=== PATIENT | male | born 1995 | race African-American/Black ===

== ENCOUNTER 2018-11-15 18:43 | Emergency (ER) | payer SELFPAY ==
[~2018-11-15] VITALS: Wt 83.8 kg
[2018-11-15 18:45] VITALS: BP 143/95; PULSE 105; RESP 18
[2018-11-15] MEDS ORDERED: LIDOCAINE 1% (MDV) 20 ML INJ SC ONE (19:00)
[2018-11-15] MEDS ORDERED: CEPH-443 PO (19:18)
[2018-11-15] MEDS ORDERED: BACI28.34 TOP (19:18)
--- NOTE | 2018-11-15 19:33 | ERD ---
ER Documentation Chief Complaint Chief Complaint LAC TO CHIN S/P SLIP AND FALL HPI This patient is a 23-year-old male with no significant past medical history presenting with complaints of skin avulsion to his chin which occurred approximately 15 hours prior to arrival. He reports associated pain which he rates 3/10 in severity. Pain is constant. He states he was running when he slipped and fell forward hitting his chin against a metal plate on the ground. He denies any loss of consciousness, vomiting, confusion, or other symptoms or injuries at this time. He states his tetanus shot is up-to-date. ROS All systems reviewed and are negative except as per history of present illness. Medications Home Meds Active Scripts Bacitracin* (Bacitracin Zinc Oint*) 28.35 Gm Oint, 1 APPLIC TOP BID, #1 TUB APPLI TO Prov:KARY COOK PA-C 11/15/18 Cephalexin* (Keflex*) 500 Mg Capsule, 500 MG PO TID for 5 Days, CAP Prov:KARY COOK PA-C 11/15/18 Allergies Allergies: Coded Allergies: No Known Allergy (Unverified , 11/15/18) PMhx/Soc Medical and Surgical Hx: pt denies Medical Hx, pt denies Surgical Hx History of Surgery: No Anesthesia Reaction: No Hx Neurological Disorder: No Hx Respiratory Disorders: No Hx Cardiac Disorders: No Hx Psychiatric Problems: No Hx Miscellaneous Medical Probl: No Hx Alcohol Use: Yes Hx Substance Use: No Hx Tobacco Use: Yes (2 sticks/day) Smoking Status: Light tobacco smoker FmHx Family History: No diabetes Physical Exam Vitals Vital Signs Date Temp Pulse Resp B/P (MAP) Pulse Ox O2 O2 Flow FiO2 Time Delivery Rate 11/15/18 97.8 105 18 143/95 99 18:45 (111) Physical Exam Const: No acute distress Head: Atraumatic Eyes: Normal Conjunctiva ENT: Normal External Ears, Nose and Mouth. Neck: Full range of motion. No meningismus. Resp: Clear to auscultation bilaterally Cardio: Regular rate and rhythm, no murmurs Skin: There is a skin avulsion noted to the chin. No obvious foreign body. No active bleeding. Ext: No cyanosis, or edema Neur: Awake and alert Psych: Normal Mood and Affect Results 24 hrs Current Medications Medications Dose Sig/Yesenia Start Time Status Last (Trade) Ordered Route PRN Stop Time Admin Dose Reason Admin Lidocaine 20 ml ONCE ONCE 11/15/18 DC (Xylocaine SC 19:00 11/15/18 1% (Mdv) 20 19:01 ml) Procedures/MDM Patient is a 23-year-old male presenting with a skin avulsion of the chin. There is no indication for wound closure at this time due to the wound being more than 12 hours old. The wound was thoroughly irrigated and dressing was applied. Patient is stable and appropriate for discharge and further treatment/follow-up as an outpatient. He will be given prescription for Keflex and bacitracin. The patient agreed with the diagnosis, plan, need for follow- up, return precautions. Questions and concerns were addressed prior to discharge. Patient's blood pressure was elevated (>120/80) but appears stable without evidence of hypertension emergency or urgency. The patient is to follow-up and pursue outpatient monitoring and therapy with their primary care physician within 1 week and return immediately if they have any new, worsening, or concerning symptoms. Disclaimer: Inadvertent spelling and grammatical errors are likely due to EHR/dictation software use and do not reflect on the overall quality of patient care. Also, please note that the electronic time recorded on this note does not necessarily reflect the actual time of the patient encounter. Departure Diagnosis: Primary Impression: Skin avulsion Condition: Fair Patient Instructions: Skin Avulsion Referrals: [facility] YOU HAVE RECEIVED A MEDICAL SCREENING EXAM AND THE RESULTS INDICATE THAT YOU DO NOT HAVE A CONDITION THAT REQUIRES URGENT TREATMENT IN THE EMERGENCY DEPARTMENT. FURTHER EVALUATION AND TREATMENT OF YOUR CONDITION CAN WAIT UNTIL YOU ARE SEEN IN YOUR DOCTORS OFFICE WITHIN THE NEXT 1-2 DAYS. IT IS YOUR RESPONSIBILITY TO MAKE AN APPOINTMENT FOR FOLOW-UP CARE. IF YOU HAVE A PRIMARY DOCTOR --you should call your primary doctor and schedule an appointment IF YOU DO NOT HAVE A PRIMARY DOCTOR YOU CAN CALL OUR PHYSICIAN REFERRAL HOTLINE AT IF YOU CAN NOT AFFORD TO SEE A PHYSICIAN YOU CAN CHOSE FROM THE FOLLOWING [facility] CL[facility]ICS [facility] [address] [facility] [address] [facility] [facility] [address] [facility] [address] [facility]. [facility] [address] [facility]. [facility]. [address] Additional Instructions: Call your primary care doctor TOMORROW for an appointment during the next 1-2 days.See the doctor sooner or return here if your condition worsens before your appointment time. KARY COOK PA-C Nov 15, 2018 19:32
== END 2018-11-15 19:35 | disposition home or self-care (01) ==
LOC: FTE 18:43
DX: S01.90XA Unspecified open wound of unspecified part of head, initial encounter (principal); F17.210 Nicotine dependence, cigarettes, uncomplicated; W01.118A Fall on same level from slipping, tripping and stumbling with subsequent striking against other sharp object, initial encounter; Y92.9 Unspecified place or not applicable
CPT/HCPCS: 99283